=== PATIENT | female | born 1995 | race Caucasian/White ===

== ENCOUNTER → 2024-12-18 08:24 | Outpatient (REF) | payer OTHER, SELFPAY | LOC: PAVMRI 08:24 | PROVIDERS: ATTENDING PHYSICIAN Nurse Practitioner Acute Care | DX: I77.810 Thoracic aortic ectasia (principal); Q23.81 Bicuspid aortic valve; Q96.9 Turner's syndrome, unspecified | CPT/HCPCS: 75561; 75565; A9585 ==